=== PATIENT | female | born 1980 | race Caucasian/White ===

== ENCOUNTER 2023-08-25 08:50 | Emergency (ER) | payer OTHER, SELFPAY ==
[2023-08-25 08:52] VITALS: BP 132/95
[2023-08-25 09:17] VITALS: BMI 24.3
--- NOTE | 2023-08-25 09:21 | EDRN ---
Angus LUBIN in room w/ pt at this time.
--- NOTE | 2023-08-25 09:28 | ED.MUSCINJ ---
HPI-Injury
General
Chief Complaint: Musculo-Skeletal Complaint
Source: patient
Exam Limitations: none
Time Seen by Provider: 08/25/23 09:11
Travel History
Have you had any contact with someone who has COVID-19?: No
Do you have any symptoms of coronavirus? Fever > 100 degrees, chills, cough, shortness of breath, sore throat, loss of taste or smell, muscle aches, or headache?: No
History of Present Illness-Injury
Initial Injury comments:
42-year-old otherwise healthy female presents complaining of right-sided chest pain has been present for about 5 days. Hurts to move hurts to breathe and cough. She occasionally feels short of breath. Several weeks ago she had a flare of
allergies where she was coughing significantly. The cough resolved. She states she works out a lot and has been doing some high intensity training and notes recent chest workout. She denies hemoptysis. No leg swelling or calf pain. No recent
travel. No abdominal pain pain occasionally radiates to the back. She took Aleve.
Past History
Past History
ED Past Medical History: Asthma and Psychiatric (anxiety)
ED Past Surgical History: , Gynecological and Orthopedic
Social History
Tobacco: Non-smoker
Personal:
Living: with family
Employment: Employed
Phy Exam
Physical Exam
Physical Exam:
General: Well appearing female, NAD
HEENT: NC/AT
Heart: RRR, no murmurs
Lungs: CTA bilaterally
Abdomen soft nontender nondistended no guarding or rebound
Extremities: No cyanosis
Injury Course
Orders/Labs/Results
Orders:
Orders
08/25/23 09:28
Electrocardiogram (*1) Urgent
Reason for Study: Chest Pain
EKG- Treatment ONCE
08/25/23 09:58
Complete Blood Count/With Diff Urgent
Comprehensive Metabolic Panel Urgent
D-Dimer Urgent
Troponin I Urgent
08/25/23 10:54
CT Chest Pe Study Urgent
Comment:
Reason For Exam: right sided chest pain, elevated d-dimer
Abnormal Lab Results
08/25/23
09:58
Absolute Monos (auto) 0.7 H 10^3/uL
(0.1-0.6)
Monocytes % 10.3 H %
(1.7-9.3)
D-Dimer 1.02 H ug/mlFEU
(0.00-0.50)
Glucose 110 H mg/dl
(70-99)
08/25/23 09:58
08/25/23 09:58
MDM/Problems Addressed
Differential Diagnosis Includes:
Right chest pain. Unlikely to be ACS. No risk factors for PE. Consider chest wall strain versus rib fracture versus pneumonia.
Do troponin D-dimer pending. Imaging based on D-dimer result. No respiratory distress currently
*Critical Care Note
Total Time (30-74mins, 75-104mins- exclusive of procedures): Not Applicable
Update Note
Update Note:
D-dimer was elevated at 1.02. This was followed by CT scan PE study which is negative for pulmonary embolism. Patient describes pain with motion and breathing. Suspect muscular strain without rib fracture. No soft tissue mass noted on
reassessment. Recommended anti-inflammatories and time. Also recommend follow-up with family doctor and/or warp scouring vat tender. Stable for discharge.
ED Attending Note
-
Portions of this chart may have been created with voice recognition software.� Occasional wrong word or��sound alike� substitutions may have occurred due to the inherent limitations of voice recognition software.
Discharge Plan
Departure
Patient Disposition: Home (Routine Discharge)
Date of Disposition: 08/25/23
Time of Disposition: 12:52
Patient with high blood pressure during this ER visit?: No
Discharge Problem:
Strain of chest wall
Instructions: Muscle and Bone Pain (DC)
Prescriptions:
No Action
Vitamins
prednisone 50 MG tablet
50 mg PO DAILY Qty: 1 0RF
epinephrine [EpiPen] 0.3 MG/0.3/SYRINGE auto-injector
0.3 mg IM UD Qty: 1 0RF
Referrals:
Gopi Rodriguez MD [Family Provider] -
Activity Restrictions/Additional Instructions:
Continue with Tylenol or ibuprofen for pain. You may use warm compresses. Return if worse otherwise follow-up with your doctors. Avoid heavy lifting or twisting
Interventions
Interventions:
*Risk Screen - Suicide Last Done: 08/25/23 08:52
*General Assessment Last Done: 08/25/23 08:52
*Neglect/Abuse Screening Last Done: 08/25/23 08:52
ED- Fall Risk Assessment Last Done: 08/25/23 09:16
*ED COVID-19 Vaccine History Last Done: 08/25/23 09:16
ED-Musculoskeletal Assessment Last Done: 08/25/23 09:17
Discharge Date and Time
Print Language: ICELANDIC
[2023-08-25 09:58] VITALS: BP 131/76
[2023-08-25 10:00] VITALS: BP 119/69
[2023-08-25 10:08] LABS: % Basophils 1.2 % (0-2); % Eosinophils 2.8 % (0-6); % Immature Granulocytes 0.2 % (0-0.5); % Lymphocytes 30.2 % (20.5-51.1); % Monocytes 10.3 % (1.7-9.3); % Neutrophils 55.3 % (42.2-75.2); Absolute Basophils 0.1 10^3/uL (0-0.2); Absolute Eosinophils 0.2 10^3/uL (0-0.7); Absolute Lymphocytes 1.9 10^3/uL (1.2-3.4); Absolute Monocytes 0.7 10^3/uL (0.1-0.6); Absolute Neutrophils 3.6 10^3/uL (1.4-6.5); Hematocrit 39.4 % (37.0-47.0); Hemoglobin 13.8 g/dL (12.0-16.0); Mean Corpuscular Hgb 30.4 pg (27.0-31.0); Mean Corpuscular Volume 86.8 fL (81.0-99.0); Mean Platelet Volume 9.4 fL (7.4-10.4); Nucleated Red Blood Cells % 0 %; Platelet Count 260 10^3/uL (130-400); Red Blood Cell Count 4.54 10^6/uL (4.20-5.40); Red Cell Dist. Width 12.3 % (11.5-14.5); White Blood Cell Count 6.4 10^3/uL (4.8-10.8)
[2023-08-25 10:19] LABS: ALT (SGPT) 27 U/L (0-35); AST (SGOT) 32 U/L (14-36); Albumin 4.4 g/dl (3.5-5.0); Alkaline Phosphatase 61 U/L (38-126); Blood Urea Nitrogen 16 mg/dl (7-17); Calcium 10.2 mg/dl (8.4-10.2); Carbon Dioxide 27 mmol/L (22-30); Chloride 104 mmol/L (98-107); Estimated Creatinine Clearance 112 ml/min; Glucose 110 mg/dl (70-99); Potassium 4.3 mmol/L (3.5-5.1); Sodium 139 mmol/L (135-145); Total Bilirubin 0.7 mg/dl (0.2-1.3); Total Protein 7.3 g/dl (6.3-8.2); eGFR > 60.00
[2023-08-25 10:31] LABS: Troponin I < 0.012 ng/ml
[2023-08-25 10:52] LABS: D-Dimer 1.02 ug/mlFEU (0.00-0.50)
[2023-08-25 11:00] VITALS: BP 126/87
[2023-08-25 12:14] VITALS: BP 120/81
== END 2023-08-25 12:59 | disposition home or self-care (01) ==
LOC: EMR 08:50
PROVIDERS: Physician Assistant; EMERGENCY PHYSICIAN Emergency Medicine; FAMILY PHYSICIAN Internal Medicine
DX: S29.011A Strain of muscle and tendon of front wall of thorax, initial encounter (principal); X50.0XXA Overexertion from strenuous movement or load, initial encounter
CPT/HCPCS: 99285; 71275; 80053; 84484; 85025; 85379; 93005; Q9967

== ENCOUNTER → 2023-10-21 07:25 | Outpatient (REF) | payer OTHER, SELFPAY | LOC: WDC 07:25 | PROVIDERS: ATTENDING PHYSICIAN Obstetrics & Gynecology; FAMILY PHYSICIAN Internal Medicine | DX: N63.10 Unspecified lump in the right breast, unspecified quadrant (principal) | CPT/HCPCS: 76642; 77062; 77066 ==

== ENCOUNTER → 2024-10-21 06:59 | Outpatient (REF) | payer OTHER, SELFPAY | LOC: WDC 06:59 | PROVIDERS: ATTENDING PHYSICIAN Obstetrics & Gynecology; FAMILY PHYSICIAN Internal Medicine | DX: Z12.31 Encounter for screening mammogram for malignant neoplasm of breast (principal) | CPT/HCPCS: 77063; 77067 ==